=== PATIENT | male | born 2000 | race Two or more races ===

== ENCOUNTER 2024-06-13 23:33 | Emergency (ER) | payer OTHER ==
[~2024-06-13] VITALS: Ht 170.2 cm; Wt 61.4 kg
[2024-06-13 23:37] VITALS: BP 130/80; PULSE 84; RESP 15; TEMP 99.3; O2SAT 96
[2024-06-14] MEDS: KETOROLAC TROMETHAMINE 30 MG/ML VIAL IM ONE (00:40)
[2024-06-14] MEDS ORDERED: IBUP-1492 PO (01:33)
== END 2024-06-14 01:57 | disposition home or self-care (01) ==
LOC: EMS 23:35
DX: S93.401A Sprain of unspecified ligament of right ankle, initial encounter (principal); V29.888A Rider (driver) (passenger) of other motorcycle injured in other specified transport accidents, initial encounter; Y93.89 Activity, other specified; Y92.89 Other specified places as the place of occurrence of the external cause; Y99.8 Other external cause status
CPT/HCPCS: 99283; 73610; 96372; J1885